=== PATIENT | female | born 1985 | race Caucasian/White ===

== ENCOUNTER 2016-11-18 13:23 | Emergency (ER) | payer OTHER ==
[~2016-11-18] VITALS: Ht 167.6 cm; Wt 127.7 kg
[2016-11-18 13:26] VITALS: BP 160/93; PULSE 66; RESP 16; O2SAT 100
[2016-11-18] MEDS ORDERED: HYDROmorphone 0.5 mg/0.5 mL iSecure Syringe IVPUSH PRN (13:30)
[2016-11-18] MEDS ORDERED: Ondansetron 2 mg/mL 2 mL Inj IVPUSH ONE (13:30)
[2016-11-18] MEDS ORDERED: 0.9% Sodium Chloride 1,000 ML IV ONE (13:30)
--- NOTE | 2016-11-18 13:32 | ED.REPORT ---
HPI-Abd Pain F Under 39 Date of Service Nov 18, 2016 ED Provider: Jasvir An MD The patient is a 30 year old female with a history of gastric bypass and bilateral varicose veins who presents to the ED with epigastric abdominal cramping that began at 0500 this morning. Her pain comes in waxes and wanes, radiates to bilateral flank and has become progressively worse since onset. She believes that the pain woke her up this morning and rates her worst pain as a 7/ 10. She initially attributed her symptoms to flatulence or constipation but had a regular bowel movement this morning. She also endorses nausea without vomiting. Patient denies any fever, chills, dysuria, chest pain or SOB. Nursing Notes Stated Complaint: STOMACH PAIN Chief Complaint: Female Abdominal Pain Nursing Notes Reviewed: Yes ([employer] nots reconciled) Allergies: Coded Allergies: No Known Allergies (Unverified , 11/18/16) Scheduled PRN Hydrocodone-Acetaminophen 5-325 mg (Hydrocodone-Acetaminophen 5-325 mg) 1 Each Tablet 1-2 TABLET PO Q6H PRN PRN For Pain General Time Seen by MD: 13:29 Chief Complaint Abdominal pain Hx Obtained From: Patient Arrived By: Walk-in Sudden in Onset?: No Onset Occurred: 5 - 8 hours ago Symptom Duration: Since onset Progression since Onset: Waxes and wanes Location: : Epigastric Quality: Cramping Radiation: : Flank bilateral Severity: Current: Moderate Severity: Maximum: Moderate Associated with: Reports: Nausea, Denies: Chills, Dysuria, Fever, Shortness of breath, Vomiting Pertinent Negative: Pt denies other symptoms Recent Healthcare: No recent doctor visit, No recent hospitalization Past Medical History Past Medical History Varicose veins in bilateral extremities Obesity Past Surgical History Gastric Bypass Smoking History Unknown if Ever Smoker Social History Other Social History: Good social support, , Local resident Ambulatory Status Independent Review of Systems Constitutional: Denies: Chills, Fever Respiratory: Denies: Shortness of breath Cardiovascular: Denies: Chest pain GI: Reports: Abdominal pain, Nausea, Denies: Constipation, Vomiting Female: Reports: Flank pain, Denies: Dysuria Complete sys rev & neg: except as marked. Physical Exam Initial Vital Signs Vital Signs (First) Date Time Temp Pulse Resp B/P Pulse Ox O2 Delivery O2 Flow Rate FiO2 11/18/16 13:26 36.1 66 16 160/93 100 Room Air Initial VS: Reviewed, Vital signs normal Head / Eyes: Atraumatic, Normocephalic, PERRL Neck: Supple, Non-tender, Full range of motion Extremities: Vascular intact, Neuro intact, No swelling, No tenderness Skin: Warm, Dry, No cyanosis Neurologic: Alert, Oriented, Nonfocal Psychiatric: Mood/affect normal, Behavior normal, Normal thought content General/Constitutional: Awake, Alert, No acute distress, Well appearing, Well developed Respiratory / Chest: Atraumatic, Breath sounds NL, Breath sounds = bilat, No respiratory distress Cardiovascular: Heart rate NL, Regular rhythm, Heart sounds NL Abdomen: Atraumatic, Soft, No guarding, No rebound Tenderness/Guarding/Rebound: Positive: Tender epigastric Back: Atraumatic, Inspection NL Interpretation & Diagnostics Lab Results Interpretation Result Diagram: 11/18/16 1343 11/18/16 1343 Test 11/18/16 13:43 11/18/16 14:00 White Blood Count 11.0th/mm3 (3.8-10.1) Red Blood Count 5.03mil/mm3 (3.90-5.20) Hemoglobin 13.7g/dL (12.0-15.6) Hematocrit 41.9% (35.0-46.0) Mean Corpuscular Volume 83.3fL (81-100) Mean Corpuscular Hemoglobin 27.2pg (27.0-35.0) Mean Corpuscular Hemoglobin Concent 32.7% (32.0-37.0) Red Cell Distribution Width 13.8% (12.3-15.4) Platelet Count 269bil/L (150-400) Neutrophils (%) (Auto) 69.8% (40-74) Lymphocytes (%) (Auto) 20.6% (14-46) Monocytes (%) (Auto) 7.3% (4-12) Eosinophils (%) (Auto) 1.7% (0-5) Basophils (%) (Auto) 0.3% (0-3) Sodium Level 139mEq/L (134-144) Potassium Level 4.2mEq/L (3.5-5.2) Chloride Level 101mEq/L (97-108) Carbon Dioxide Level 24mmol/L (18-29) Blood Urea Nitrogen 15mg/dL (6-20) Creatinine 0.54mg/dL (0.57-1.00) Estimat Glomerular Filtration Rate 189mL/min (>59) Glucose Level 102mg/dL (60-99) Calcium Level 9.5mg/dL (8.5-10.1) Magnesium Level 1.9mg/dL (1.6-2.6) Total Bilirubin 0.4mg/dL (0.0-1.2) Aspartate Amino Transf (AST/SGOT) 20U/L (0-50) Alanine Aminotransferase (ALT/SGPT) 19U/L (0-32) Alkaline Phosphatase 108U/L (25-150) Total Protein 8.0g/dL (6.4-8.4) Albumin 4.4g/dL (3.4-5.0) Lipase 22U/L (13-60) Hold Urine Received (Received) Lab Results Interpretation: CBC trace leukocytosis CMP normal CT Abd / Pelvis Interpretation IMPRESSION: 1. Gallstones in the gallbladder but no inflammatory changes or distention of it or the biliary tree is seen. Pancreas is considered normal. 2. Right kidney is normal. Appendix is normal. 3. 3 cm cystic structure in the left ovary. 4. Scattered diverticula in the colon but no diverticulitis. The 5. Prominent varicosities within the proximal anterior left thigh and in the left side of the panniculus. 6. Previous gastric stapling. Dictated by: Denilson Valdez M.D. on 11/18/2016 at 15:37 Study type: Abdominal CT IV contrast, Abdom CT oral contrast Interpretation / Wet Read by: Interpret - Radiologist Re-Eval/Medical Decision Source of Hx: Old records Re-Evaluation/Progress : Time of Eval: 15:53 Patient Status: Pain improved Re-Evaluation/Progress Note: Patient condition is re-evaluated. She is informed of her results and diagnosis. She is offered an US but declines. All questions about the intended treatment plan are addressed. The patient understands and agrees with the current plan. She is given strict return precautions and is agreeable to discharge at this time. Counseled Regarding: Diagnosis, Lab results, Need for follow-up, When/why to return to ED Discharge & Departure Primary Impression: Abdominal pain Abdominal location: epigastric Qualified Code: R10.13 - Epigastric pain Disposition: Home Discharge Condition All VS Reviewed: Yes Condition: Improved Patient Instructions: Acute Abdominal Pain (ED) Additional Instructions: 1. A dangerous cause of the abdominal pain was not identified. 2. Your CT scan did not reveal a bowel obstruction obstruction or other dangerous condition. 3. You do have known gallstones, but as discussed there were no findings on her labs or exam indicating gallbladder disease is causing her symptoms. 4. The intervals are expected to continue to improve. If needed you can take hydrocodone 1-2 tabs up to every 6 hours for pain-use sparingly. No driving for at least 4 hours after taking. However if he developed new, or worsening symptoms-fever, severe pain - then return to the emergency department. 5. Follow-up with your doctor in [place] if symptoms have not completely resolved by the time you return. Referrals: OTHER,PHYSICIAN (PCP) Scribe Attestation Portions of this note were transcribed by Julio Cesar Pineda. I, Dr. An, personally performed the history, physical exam and medical decision-making; I reviewed and confirmed the accuracy of the information in the transcribed note. Signed by: Julio Cesar Pineda, 11/18/16. Jasvir An MD Nov 18, 2016 13:32 JULIO CESAR PINEDA Nov 18, 2016 13:39
[2016-11-18] MEDS ORDERED: Iohexol 300 mg/mL 30 mL Inj PO ONE (13:40)
[2016-11-18 13:54] LABS: BASOPHILS % (AUTO) 0.3 % (0-3); EOSINOPHILS % (AUTO) 1.7 % (0-5); MONOCYTES % (AUTO) 7.3 % (4-12); Mean Corpuscular Hemoglobin 27.2 pg (27.0-35.0); Mean Corpuscular Volume 83.3 fL (81-100); NEUTROPHILS % (AUTO) 69.8 % (40-74); Platelet Count 269 bil/L (150-400)
[2016-11-18 14:22] LABS: Magnesium 1.9 mg/dL (1.6-2.6)
--- NOTE | 2016-11-18 15:45 | DRSVH ---
PROCEDURE: CT ABDOMEN AND PELVIS WITH CONTRAST ([id number]) INDICATIONS: abd pain TECHNIQUE: After the administration of oral and intravenous contrast, 5 mm thick sections acquired from the diap hragms to the symphysis. 5 mm thick coronal and sagittal reformats were performed. For radiation do se reduction, the following was used: automated exposure control, adjustment of mA and/or kV accordi ng to patient size. COMPARISON: None. FINDINGS: Image quality: Excellent. ABDOMEN: Lung bases: Lung bases are clear. Heart size is normal. Solid organs: Liver and spleen are normal in size and enhancement. There is a 13 mm splenule in the hilum of the spleen. Gallbladder reveals cholesterol gallstones.. Biliary system is non-dilated. P ancreas enhances normally. No adrenal nodules. Kidneys are normal in size and enhancement, without hydronephrosis. Peritoneum and bowel: There is been a gastric stapling. Stomach, small bowel, and colon loops are no rmal in caliber and wall thickness. No free fluid or air. The appendix is normal. Nodes and vessels: No retroperitoneal or mesenteric adenopathy. Aorta and inferior vena cava are no rmal in caliber. Miscellaneous: No ventral hernias. PELVIS: Genitourinary: Bladder wall thickness is normal. There is a 3 cm cystic structure in the right ovar y. No abnormality of the left ovary is appreciated. The uterus is considered normal. Miscellaneous: No inguinal hernias or adenopathy. Varicosities are seen in the anterior proximal lef t thigh and in the patients panniculitis on the left side. Bones: No suspicious bony lesions. No vertebral body compression fractures. IMPRESSION: 1. Gallstones in the gallbladder but no inflammatory changes or distention of it or the biliary tree is seen. Pancreas is considered normal. 2. Right kidney is normal. Appendix is normal. 3. 3 cm cystic structure in the left ovary. 4. Scattered diverticula in the colon but no diverticulitis. The 5. Prominent varicosities within the proximal anterior left thigh and in the left side of the pannicu alan. 6. Previous gastric stapling. Dictated by: Denilson Valdez M.D. on 11/18/2016 at 15:37 Approved by: Denilson Valdez M.D. on 11/18/2016 at 15:43
[2016-11-18] MEDS ORDERED: HYDR-4003 PO (16:05)
[2016-11-18 16:17] VITALS: BP 128/78; PULSE 75; RESP 20; O2SAT 100
== END 2016-11-18 16:18 | disposition home or self-care (01) ==
LOC: SED 13:23
DX: R10.13 Epigastric pain (principal)
CPT/HCPCS: 36415; 74177; 80053; 81025; 83690; 83735; 85025; 96361; 96374; 96375; 99285; J2405; J7030; Q9967